=== PATIENT | male | born 1995 | race Caucasian/White ===

== ENCOUNTER 2017-04-05 19:50 | Emergency (ER) | payer OTHER ==
--- NOTE | 2017-04-05 21:18 | EDPHY ---
H & P Stated Complaint: COUGH THROAT PAIN WORSE AT NIGHT NOW WITH BLOOD SPECKS Time Seen by Provider: 04/05/17 21:10 HPI/ROS: CHIEF COMPLAINT: The cough x4 days HISTORY OF PRESENT ILLNESS: The patient is a 21-year-old healthy man who comes to the emergency department complaining of cough for the last 4 days with some slightly blood tinged sputum recently. No fever. No shortness of breath. The patient states that he has a cough every morning occasional with black stuff in it. He does smoke. No chest pain REVIEW OF SYSTEMS: Constitutional: denies: chills, fever, recent illness, recent injury EENTM: denies: blurred vision, double vision, nose congestion Respiratory: See HPI Cardiac: denies: chest pain, irregular heart rate, lightheadedness, palpitations Gastrointestinal/Abdominal: denies: abdominal pain, diarrhea, nausea, vomiting, blood streaked stools Genitourinary: denies: dysuria, frequency, hematuria, pain Musculoskeletal: denies: joint pain, muscle pain Skin: denies: lesions, rash, jaundice, bruising Neurological: denies: headache, numbness, paresthesia, tingling, dizziness, weakness Hematologic/Lymphatic: denies: blood clots, easy bleeding, easy bruising Immunologic/allergic: denies: HIV/AIDS, transplant EXAM: GENERAL: Well-appearing, well-nourished and in no acute distress. HEAD: Atraumatic, normocephalic. EYES: Pupils equal round and reactive to light, extraocular movements intact, sclera anicteric, conjunctiva are normal. ENT: TMs normal, nares patent, oropharynx clear without exudates. Moist mucous membranes. NECK: Normal range of motion, supple without lymphadenopathy or JVD. LUNGS: Breath sounds clear to auscultation bilaterally and equal. No wheezes rales or rhonchi. HEART: Regular rate and rhythm without murmurs, rubs or gallops. ABDOMEN: Soft, nontender, normoactive bowel sounds. No guarding, no rebound. No masses appreciated. BACK: No CVA tenderness, no spinal tenderness, step-offs or deformities EXTREMITIES: Normal range of motion, no pitting or edema. No clubbing or cyanosis. NEUROLOGICAL: Cranial nerves II through XII grossly intact. Normal speech, normal gait. 5/5 strength, normal movement in all extremities, normal sensation PSYCH: Normal mood, normal affect. SKIN: Warm, dry, normal turgor, no visible rashes or lesions. Source: Patient Exam Limitations: No limitations - Personal History Current Tetanus/Diphtheria Vaccine: Yes Current Tetanus Diphtheria and Acellular Pertussis (TDAP): Yes - Medical/Surgical History Hx Asthma: No Hx Chronic Respiratory Disease: No Hx Diabetes: No Hx Cardiac Disease: No Hx Renal Disease: No Hx Cirrhosis: No Hx Alcoholism: No Hx HIV/AIDS: No Hx Splenectomy or Spleen Trauma: No Other PMH: neg - Family History Significant Family History: No pertinent family hx - Social History Smoking Status: Current some day smoker Alcohol Use: Sober Drug Use: None Constitutional: Initial Vital Signs Temperature (C) 37.1 C 04/05/17 20:06 Heart Rate 70 04/05/17 20:06 Respiratory Rate 18 04/05/17 20:06 Blood Pressure 143/82 H 04/05/17 20:06 O2 Sat (%) 96 04/05/17 20:06 O2 Delivery Mode Room Air Allergies/Adverse Reactions: amoxicillin Allergy (Unknown, Verified 04/05/17 20:08) as child Home Medications: Medication Instructions Recorded Promethazine HCl/Codeine 5 ml PO Q4-6PRN PRN #90 ml 04/05/17 [Prometh-Codein 6.25-10 mg/5 ml] Medical Decision Making - Diagnostics Imaging: Discussed imaging studies w/ fisher scallop Radiologist ED Course/Re-evaluation: 10:55 p.m. we discussed the x-ray results which are reassuring. The patient is happy and is eager to go home. I will prescribe him cough syrup. We discussed indications for returning Differential Diagnosis: Partial list of the Differential diagnosis considered include but were not limited to; pneumonia, bronchitis, upper respiratory tract infection and although unlikely based on the history and physical exam, I also considered cancer, pneumothorax, esophageal perforation. I discussed these differential diagnoses and the plan with the patient as well as the usual and expected course. The patient understands that the diagnosis is provisional and that in medicine we are not always correct and that further workup is often warranted. Usual and customary warnings were given. All of the patient's questions were answered. The patient was instructed to return to the emergency department should the symptoms at all worsen or return, otherwise to followup with the physician as we discussed. Departure - Departure Disposition: Home, Routine, Self-Care Clinical Impression: Acute bronchitis Qualifiers: Bronchitis organism: unspecified organism Qualified Code(s): J20.9 - Acute bronchitis, unspecified Condition: Fair Instructions: Acute Bronchitis (ED) Referrals: SRAVANI,UNKNOWN [Other] - As per Instructions Prescriptions: Promethazine HCl/Codeine [Prometh-Codein 6.25-10 mg/5 ml] 5 ml PO Q4-6PRN PRN # 90 ml PRN Reason: Cough, Moderate
[2017-04-05 23:06] VITALS: BP 125/58; PULSE 69; RESP 16; TEMP 98.1; O2SAT 97
== END 2017-04-05 23:06 | disposition home or self-care (01) ==
DX: J20.9 Acute bronchitis, unspecified (principal); F17.200 Nicotine dependence, unspecified, uncomplicated

== ENCOUNTER 2017-11-21 15:12 | Emergency (ER) | payer OTHER ==
[2017-11-21 15:20] VITALS: BP 103/78
--- NOTE | 2017-11-21 15:36 | EDPHY ---
H & P Stated Complaint: fx r hand punching door on sat seen at [facility] follow up Time Seen by Provider: 11/21/17 15:32 HPI/ROS: HPI: This is a 21-year-old male who presents with Chief Complaint: fx r hand punching door on sat seen at [facility]/needs follow up Location: Right hand Quality: Fracture Duration: Tuesday evening Signs and Symptoms: No bleeding, no radiation, no numbness, no weakness, no tingling, no incontinence, no decreased range of motion, + swelling, + pain, no fever Timing: Acute Severity: [id number] Context: Patient is right-hand dominant, presents with fracture of his 5th finger and 4th finger from [facility]. He was seen by them today and placed in ulnar gutter splint. He reports that the injury actually occurred on Tuesday while he was intoxicated. He was angry and punched a door. He felt minimal pain at but woke up the next day on Tuesday with swelling and pain that was moderate and nonradiating in nature. Denies radiation, weakness, tingling, paresthesias. Modifying Factors: Splint care Comment: ROS: see HPI Constitutional: No fever, no chills, no weight loss Eyes: No blurred vision Respiratory: No shortness of breath, no cough Cardiovascular: No chest pain Gastrointestinal: No nausea, no vomiting no diarrhea Genitourinary: No dysuria Extremities: No myalgias Neurologic: No weakness, no numbness Skin: No rashes Hematologic: No bruising, no bleeding MEDICAL/SURGICAL/SOCIAL HISTORY: Medical history: Generally healthy. Does not take any regular medications. Surgical history: Denies Social history: [employer] student. CONSTITUTIONAL: Extremely polite and cooperative young adult white male, awake and alert, no obvious distress HEENT: Atraumatic and normocephalic. EXTREMITIES: 2/2 pulses, strength 5/5, right hand in an ulnar gutter splint able to wiggle all 5 fingers with good capillary refill. Light touch sensation. no deformities, no clubbing, no cyanosis or edema. NEUROLOGICAL: no focal neuro deficits. GCS 15. SKIN: Warm and dry, no erythema. no rash. Good capillary refill. Source: Patient Exam Limitations: No limitations - Personal History Current Tetanus Diphtheria and Acellular Pertussis (TDAP): Yes - Medical/Surgical History Hx Asthma: No Hx Chronic Respiratory Disease: No Hx Diabetes: No Hx Cardiac Disease: No Hx Renal Disease: No Hx Cirrhosis: No Hx Alcoholism: No Hx HIV/AIDS: No Hx Splenectomy or Spleen Trauma: No Other PMH: neg - Social History Smoking Status: Current every day smoker Constitutional: Initial Vital Signs Temperature (C) 36.8 C 11/21/17 15:16 Heart Rate 83 11/21/17 15:16 Respiratory Rate 16 11/21/17 15:16 Blood Pressure 103/78 11/21/17 15:16 O2 Sat (%) 94 11/21/17 15:16 O2 Delivery Mode Room Air Allergies/Adverse Reactions: amoxicillin Allergy (Unknown, Verified 11/21/17 15:16) as child Home Medications: Medication Instructions Recorded NK [No Known Home Meds] 11/21/17 Medical Decision Making Procedures: Procedure: Splint placement. A right sling was applied by the Emergency Room dietetic technician. After application of the splint I returned and re-examined the patient. The splint was adequately immobilizing the joint and distal to the splint the patient's circulation and sensation was intact. ED Course/Re-evaluation: X-ray from [facility] up loaded and I personally reviewed via PACs He is appropriately in an ulnar gutter splint. Sling provided. Orthopedic referral. No signs of neurovascular compromise/tenting of skin/compartment syndrome/ extremities and joints examined above and below area of concern and are neurovascularly intact. This patient was seen under the supervision of my secondary supervising physician. I evaluated care for this patient independently. Discussed this patient with Dr. Adam who did not see the patient. Differential Diagnosis: Differential diagnosis includes but is not limited to moderate carpal fracture, finger dislocation, radial fracture, ulnar fracture, nerve injury, tendon injury. Departure - Departure Disposition: Home, Routine, Self-Care Clinical Impression: Fracture of fourth metacarpal bone of right hand Qualifiers: Encounter type: initial encounter Fracture type: closed Metacarpal location: unspecified portion of metacarpal Fracture alignment: displaced Qualified Code(s ): S62.304A - Unspecified fracture of fourth metacarpal bone, right hand, initial encounter for closed fracture Closed boxer's fracture Qualifiers: Encounter type: initial encounter Qualified Code(s): S62.339A - Displaced fracture of neck of unspecified metacarpal bone, initial encounter for closed fracture Condition: Good Instructions: Hand Fracture (ED), Splint Care (ED) Additional Instructions: Keep the splint dry and in place until seen by Orthopedics. Take Tylenol 650 mg every 4 hours and/or Ibuprofen 600 mg every 8 hours with food as needed for pain. Apply ice for 30 minutes at a time; 2-3 times per day for the next 1-2 days. Follow up with Orthopedics in 5-7 days at which time they will evaluate and recommend with you if conservative management versus surgery is indicated. Referrals: Hebert Wayne MD [Medical Doctor] - 5-7 days, call for appt.
== END 2017-11-21 15:55 | disposition home or self-care (01) ==
DX: S62.304A Unspecified fracture of fourth metacarpal bone, right hand, initial encounter for closed fracture (principal); S62.339A Displaced fracture of neck of unspecified metacarpal bone, initial encounter for closed fracture; F17.200 Nicotine dependence, unspecified, uncomplicated; Y04.2XXA Assault by strike against or bumped into by another person, initial encounter; Y99.8 Other external cause status; Y93.89 Activity, other specified
CPT/HCPCS: A4565